=== PATIENT | male | born 1950 | race African-American/Black ===

== ENCOUNTER 2016-04-08 00:39 | Emergency (ER) | payer OTHER ==
[~2016-04-08] VITALS: Ht 182.9 cm; Wt 90.7 kg
[2016-04-08 01:11] VITALS: BP 132/61
--- NOTE | 2016-04-08 03:09 | ED AMS/SEIZURE/WEAK/DIZZY ---
History of Present Illness General Chief Complaint: General Adult Stated Complaint: CARDIAC HX C/O DIFF BREATHING,DIZZY Source: patient, old records Exam Limitations: pt left prior to eval Vital Signs & Intake/Output Vital Signs & Intake/Output Vital Signs Date Time Temp Pulse Resp B/P Pulse O2 O2 Flow FiO2 Ox Delivery Rate 04/08 0115 97 04/08 110 96.7 79 36 132/61 97 Room Air Triage Note: PT TO ED COMPLAINING OF A SHARP PAIN IN CHEST AND DIZZINESS. PT ALSO STATES THAT HIS FACE, HANDS AND LEGS ARE SWOLLEN. PT HAS CARDIAC HX. PT ALSO STATES FEELING SOB, O2 SAT 97% RA. Triage Nurses Notes Reviewed? yes HPI: unable to obtain hx Past History Travel History Traveled to [place] past 21 day No Medical History Any Pertinent Medical History? see below for history Cardiovascular: PACEMAKER Hepatic: hepatitis C Endocrine: diabetes Blood Disorders: HIV Surgical History Surgical History: unobtainable Psychosocial History What is your primary language Malaysian Tobacco Use: Current Daily Use Daily Tobacco Use Amount/Type: => 5 Cigarettes daily Family History Hx Contributory? No (unobtainable) Review of Systems Review of Systems Constitutional: Reports: see HPI. Comments unobtainable Physical Exam Physical Exam General Appearance: not performed Core Measures ACS in differential dx? No (unable to assess) CVA/TIA Diagnosis: No (unable to assess) Severe Sepsis Present: No (unable to assess) Septic Shock Present: No (unable to assess) Progress Differential Diagnosis: unable to assess Plan of Care: Orders Procedure Date/time Status TROPONIN LEVEL 04/08 255 Active COMPREHENSIVE METABOLIC PANEL 04/08 255 Active CBC WITHOUT DIFFERENTIAL 04/08 255 Active EKG 04/08 40 Active Initial ED EKG: NSR, no diagnostic st changes Comments: no one in room, pt apparently left prior to eval. Departure Departure Disposition: ER WALKOUT Condition: Stable Clinical Impression Primary Impression: Dyspnea Qualifiers: Dyspnea type: unspecified Qualified Code: R06.00 - Dyspnea, unspecified Secondary Impressions: Dizziness Referrals: UNKNOWN (PCP/Family) Departure Forms: Customer Survey General Discharge Information
== END 2016-04-08 03:12 | disposition admitted as inpatient to this hospital (09) ==
LOC: ERH 00:39
DX: R07.9 Chest pain, unspecified (principal)
CPT/HCPCS: 93005; 93010; 99281